=== PATIENT | male | born 1980 ===

== ENCOUNTER 2016-10-16 15:07 | Emergency (ER) | payer OTHER ==
[~2016-10-16] VITALS: Wt 70.5 kg
[2016-10-16] MEDS ORDERED: LORA-441 PO (20:07)
--- NOTE | 2016-10-16 20:12 | ERD ---
ER Documentation Chief Complaint Date/Time DATE: 10/16/16 TIME: 20:09 Chief Complaint WEAKNESS FATIGUE FOR A FEW DAYS. POSSIBLE WITHDRAW FROM METH HPI 36-year-old man with a history of methamphetamine abuse states he is feeling anxious because of a court date which is scheduled in 4 days. He states his last dose of methamphetamine was 5 days ago and is worried about detoxing and is generally feeling anxious. He is homeless and states he feels hungry. She has no suicidal homicidal ideation, no fevers or chills, no chest pain or shortness of breath. Patient denies history of opioid abuse of benzodiazepine abuse or dependence. ROS All systems reviewed and are negative except as per history of present illness. 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 No submandibular induration, and no pharyngeal erythema NEURO: Alert and oriented 3, cranial nerves II through XII intact bilaterally, pupils equal round reactive to light, no focal deficits or facial asymmetry, sensation intact distally Strength 5/5 in upper and lower extremities bilaterally CARDIAC: Regular rate and rhythm, no murmurs rubs or gallops LUNGS: Clear bilaterally no wheezing crackles or stridor ABDOMEN: Soft nontender, no guarding, no rigidity, no rebound, no psoas sign no obturator sign. Normoactive bowel sounds SKIN: Warm and dry to touch, no abrasions, contusions, or hematomas, no lacerations, no ecchymosis, no target lesions, and without ulcers EXTREMITIES: No clubbing cyanosis or edema, calves are bilaterally symmetrical, no Homans sign, no popliteal cord sign. Distal pulses equal and bilateral PSYCH: Appears anxious Results 24 hrs Current Medications Medications (Trade) Dose Ordered Sig/Cathleen Route PRN Reason Start Time Stop Time Status Last Admin Dose Admin Lorazepam (Ativan) 0.5 mg ONCE ONCE PO 10/16/16 20:30 10/16/16 20:31 Procedures/MDM I administered lorazepam 0.5 mg p.o. for his symptoms. He was fed here in the emergency department. I suspect his symptoms are partly due to anxiety, although he appears well and was fed here. He will be discharged for follow-up with PMD. Differential diagnoses considered, included but not limited to acute coronary syndrome, pulmonary embolism, aortic dissection, abdominal aortic aneurysm, sepsis, stroke, meningitis, encephalitis, pneumonia, appendicitis, cholecystitis , bowel obstruction, pyelonephritis, nephrolithiasis, cystitis, as well as metabolic, hematologic, and electrolyte abnormalities. As well as abscess, cellulitis, fractures, and dislocations. Patient feels much better at this time, and vital signs are normal, symptoms have improved. I did give strict instructions to return to the ED if symptoms continue or worsen, patient will otherwise follow-up with primary care physician. Patient understood instructions and agreed to plan. Departure Diagnosis: Primary Impression: Methamphetamine abuse Additional Impression: Normal exam Condition: Good Patient Instructions: Understanding Methamphetamine Abuse and Addiction ALEX NORIEGA MD Oct 16, 2016 20:11
[2016-10-16 20:30] VITALS: BP 130/71; PULSE 82; RESP 20; TEMP 98.6
[2016-10-16] MEDS ORDERED: LORAZEPAM 0.5 MG TAB PO ONE (20:30)
== END 2016-10-16 21:10 | disposition home or self-care (01) ==
LOC: E/R 15:07
DX: F15.10 Other stimulant abuse, uncomplicated (principal); Z00.00 Encounter for general adult medical examination without abnormal findings
CPT/HCPCS: 99283